=== PATIENT | male | born 1980 | race American Indian/Alaskan Native ===

== ENCOUNTER 2017-08-30 06:33 | Emergency (ER) | payer SELFPAY ==
--- NOTE | 2017-08-30 06:55 | Emergency Department Report ---
ED CPR HPI - General Stated Complaint: CARDIAC ARREST Time Seen by Provider: 08/30/17 06:48 Source: family, EMS Mode of arrival: Stretcher Limitations: Altered Mental Status, Physical Limitation - History of Present Illness Initial Comments: Mr. Paulson is a 37-year-old male with history of liver cirrhosis and hypertension. Unresponsive by family member. Discovered to be in asystole by EMS. Received 3 doses of epinephrine and one dose of Maalox. He was intubated with ETT confirmed with capnography. Complaint: found unresponsive Place: home Initial Findings in the Field: unresponsive ROSC in the Field: No Treatments Prior to Arrival: intubation, epinephrine mgs # (3 doses), other ( naloxone) - Related Data Home Medications Medication Instructions Recorded Confirmed Last Taken No Known Home Medications [No 09/23/13 09/23/13 Unknown Reported Home Medications] Allergies Allergy/AdvReac Type Severity Reaction Status Date / Time No Known Allergies Allergy Verified 09/11/13 21:21 ED Review of Systems ROS: Stated complaint: CARDIAC ARREST Other details as noted in HPI Comment: Unobtainable due to pts medical conditions ED Past Medical Hx - Past Medical History Hx Hypertension: Yes Additional medical history: Liver cirrhosis - Social History Smoking Status: Current Every Day Smoker Substance Use Type: Alcohol - Medications Home Medications: Home Medications Medication Instructions Recorded Confirmed Last Taken Type No Known Home Medications [No 09/23/13 09/23/13 Unknown History Reported Home Medications] ED Physical Exam - General Limitations: Physical Limitation General appearance: obtunded, other (lifeless no spontaneous movement) - Head Head exam: Present: atraumatic, normocephalic - Eye Eye exam: Present: other (fixed dilated pupils). Absent: scleral icterus, conjunctival injection - ENT ENT exam: Present: other (dry mucous membranes ETT in place) - Neck Neck exam: Present: normal inspection - Respiratory Respiratory exam: Present: other (coarse bilateral breath sounds with ventilation using Ambu bag) - Cardiovascular Cardiovascular Exam: Present: other (no auscultated heart sounds.) - GI/Abdominal GI/Abdominal exam: Present: distended - Extremities Exam Extremities exam: Present: normal inspection - Neurological Exam Neurological exam: Present: other (no spontaneous movement lifeless) - Psychiatric Psychiatric exam: Present: other (no spontaneous movement) - Skin Skin exam: Present: warm, intact ED Medical Decision Making - Medical Decision Making Mr. Paulson presents in cardiac arrest. Asystole upon arrival. Asystole was present the entire during resuscitation attempt by EMS. Mr. Paulson underwent 25 minutes of ACLS in the field. Further intervention deemed futile. Time of 627. I informed family members of . Critical care attestation.: If time is entered above; I have spent that time in minutes in the direct care of this critically ill patient, excluding procedure time. ED Disposition Clinical Impression: Cardiac arrest Disposition: DC-20 Is pt being admited?: No Does the pt Need Aspirin: No Condition: Stable Time of Disposition: 06:28
== END 2017-08-30 08:30 ==
LOC: ED 06:33
DX: I46.9 Cardiac arrest, cause unspecified (principal); I10 Essential (primary) hypertension; F17.200 Nicotine dependence, unspecified, uncomplicated
CPT/HCPCS: 99285